=== PATIENT | female | born 1975 | race Caucasian/White ===

== ENCOUNTER 2017-05-21 04:03 | Emergency (ER) | payer OTHER ==
[~2017-05-21] VITALS: Ht 152.4 cm; Wt 61.2 kg
[2017-05-21 05:02] LABS: ABSOLUTE BASOPHIL COUNT 0 /CUMM (0.0-0.2); ABSOLUTE EOSINOPHIL COUNT 0.1 /CUMM (0.0-0.7); ABSOLUTE GRANULOCYTE CT 4.4 /CUMM (1.4-6.5); ABSOLUTE LYMPH COUNT 1.5 /CUMM (1.2-3.4); ABSOLUTE MONOCYTE COUNT 0.4 /CUMM (0.10-0.60); BASOPHIL % 0.4 % (0.0-2.0); EOSINOPHIL % 1.9 % (0-5); GRANULOCYTE % 68.4 % (42.2-75.2); HEMATOCRIT 35.8 % (37-47); MEAN CORPUSCULAR HGB CONC 33.7 G/DL (33.0-37.0); MEAN PLATELET VOLUME 8.5 FL (7.4-10.4); PLATELET COUNT 130 /CUMM (130-400); RED BLOOD CELL CT 4.02 /CUMM (4.20-5.40); WHITE BLOOD CELL COUNT 6.5 /CUMM (4.8-10.8)
--- NOTE | 2017-05-21 05:37 | ED NECK/BACK PAIN COMPLAINT ---
See Addendum History of Present Illness General Chief Complaint: Upper Extremity Problem Stated Complaint: " BIBA MY ARM IS IN PAIN" Source: patient, family, old records, EMS Exam Limitations: no limitations Vital Signs & Intake/Output Vital Signs & Intake/Output Vital Signs Date Time Temp Pulse Resp B/P B/P Pulse O2 O2 Flow FiO2 Mean Ox Delivery Rate 05/21 0655 97.1 89 18 102/55 98 05/21 0422 96.8 78 20 162/79 100 Room Air Allergies Coded Allergies: Penicillins (HIVES 05/21/17) Triage Note: PT BIBA TO TRIAGE. PT C/O R ARM PAIN THAT STARTED AT 0320 AM, PT STATES SHE WOKE UP WITH SHOOTING PAIN FROM R ARMPIT DOWN TO FINGERS. PT STATES ""IT FEELS LIMP, I CANT MOVE IT". PAIN 02/17 Triage Nurses Notes Reviewed? yes Onset: Just prior to arrival Duration: minute(s):, constant, continues in ED Timing: recent history Quality/Severity: severe, sharpness Location: C-spine, paraspinous muscles Radiation: R arm/hand Method of Injury: unknown Loss of Consciousness: no loss of consciousness Modifying Factors: immobilization, movement Associated Symptoms: muscle spasm, neck pain, sensory/motor loss LMP (ages 10-50): unknown : No Patient currently breastfeeds: No HPI: Prior to admission patient awoke with severe neck and right arm pain described as sharp constant worse with movement turning bending she is fearful of moving the arm secondary to increased pain. She denies trauma fever chills nausea vomiting diarrhea abdominal pain chest pain shortness of breath headache dysuria rash bleeding. (Gus Healy MD) Past History Travel History Traveled to [place] past 21 day No Medical History Any Pertinent Medical History? see below for history Neurological: NONE EENT: NONE Cardiovascular: NONE Respiratory: NONE Gastrointestinal: NONE Hepatic: NONE Renal: NONE Musculoskeletal: disk herniation Psychiatric: NONE Endocrine: NONE Blood Disorders: NONE Cancer(s): NONE CHEMIST FOOD/Reproductive: NONE Surgical History Surgical History: non-contributory Psychosocial History What is your primary language Burmese Tobacco Use: Never used ETOH Use: denies use Illicit Drug Use: denies illicit drug use Family History Hx Contributory? No (Gus Healy MD) Review of Systems Review of Systems Constitutional: Reports: no symptoms. Eyes: Reports: no symptoms. Ears, Nose, Throat, Mouth: Reports: no symptoms. Respiratory: Reports: no symptoms. Cardiovascular: Reports: no symptoms. Gastrointestinal/Abdominal: Reports: no symptoms. Musculoskeletal: Reports: see HPI, joint pain, muscle pain, neck pain. Skin: Reports: no symptoms. Neurological/Psychological: Reports: no symptoms. All Other Systems: Reviewed and Negative (Gus Healy MD) Physical Exam Physical Exam General Appearance: well developed/nourished, mild distress Head: atraumatic, normal appearance Eyes: Bilateral: PERRL, EOMI. Ears, Nose, Throat, Mouth: hearing grossly normal, moist mucous membrane Neck: normal inspection, limited range of motion, muscle spasm, tender midline Respiratory: normal breath sounds, chest non-tender, no respiratory distress, quiet respiration, lungs clear Cardiovascular: regular rate/rhythm, normal peripheral pulses, norml femoral pulses equa Peripheral Pulses: 4+ carotid (R), 4+ carotid (L) Gastrointestinal: normal bowel sounds, soft, non-tender Back: normal inspection, normal range of motion, no vertebral tenderness Extremities: non-tender, pedal edema, no ligament instability Straight Leg Raising: Right: Negative. Left: Negative. Sensory: Medial Le: L4R, L4L. Top of Foot: 2: L5R, L5L. Sole of Foot: 2: SIR. 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, motor weakness Skin: intact, normal color, warm/dry Core Measures CVA/TIA Diagnosis: No (Gus Healy MD) Progress Differential Diagnosis: C spine injury, cauda equina syn, herniated disc, myofascial strain Plan of Care: Orders Procedure Date/time Status MRI-CERVICAL SPINE 05/21 0654 Active MAGNESIUM 05/21 442 Complete HUMAN BETA HCG SCREEN 05/21 442 Complete COMPREHENSIVE METABOLIC PANEL 05/21 442 Complete CBC WITHOUT DIFFERENTIAL 05/21 442 Complete Laboratory Tests 05/21/17 0450: Anion Gap 16, Estimated GFR > 60, BUN/Creatinine Ratio 14.3, Glucose 106 H, Calcium 9.2, Magnesium 1.9, Total Bilirubin 0.5, AST 18, ALT 28, Alkaline Phosphatase 43, Total Protein 6.7, Albumin 4.2, Globulin 2.5, Albumin/Globulin Ratio 1.7, Total Beta HCG NEGATIVE, CBC w Diff NO MAN DIFF REQ, RBC 4.02 L, MCV 89.0, MCH 30.0, RDW 13.0, MPV 8.5, Gran % 68.4, Lymphocytes % 23.2, Monocytes % 6.1, Eosinophils % 1.9, Basophils % 0.4, Absolute Granulocytes 4.4, Absolute Lymphocytes 1.5, Absolute Monocytes 0.4, Absolute Eosinophils 0.1, Absolute Basophils 0, PUBS MCHC 33.7 Diagnostic Imaging: Viewed by Me: Radiology Read, CT Scan. Discussed w/RAD: Radiology Read, CT Scan. Radiology Impression: Degenerative changes at the lower cervical spine. Bony neuroforaminal narrowing bilaterally at C5-C6. Hand-Off Endorsed To: Ye Freeman DO Endorsed Time: 0700 Pending: MRI, Xray (Gus Healy MD) Departure Departure Disposition: STILL A PATIENT Condition: Stable Clinical Impression Primary Impression: Cervical spinal stenosis Referrals: Patient Has No Primary Care Dr (PCP/Family) Departure Forms: Customer Survey General Discharge Information (Gus Healy MD) Departure Comments 05/21/17 8 am 41-year-old female with severe right upper extremity pain. She is pending MRI. The patient was signed out to me by Dr. 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 She has an excellent right radial pulse. The right hand is warm. There is excellent capillary refill to the right hand. MRI remains pending. (Ye Freeman DO)
--- NOTE | 2017-05-21 06:00 | CT SCAN REPORT ---
EXAMINATION: CT CERVICAL SPINE WITHOUT CONTRAST CLINICAL INFORMATION: Right arm pain. History of C5-C6 herniation. COMPARISON: None TECHNIQUE: Multidetector volumetric imaging of the cervical spine was performed without IV contrast. Coronal and sagittal reformatted images were obtained and reviewed. DLP: 368 mGy-cm FINDINGS: There is reversal of the normal cervical lordosis. No acute fracture or subluxation. Vertebral body heights are maintained. There is disc space narrowing at C5-C6 and C6-C7 with endplate osteophyte formation. There is mild bony neuroforaminal narrowing bilaterally at C5-C6. No gross evidence for disc bulge. The atlantoaxial and atlantooccipital articulations are intact. The visualized portions of the brain are unremarkable. The thyroid gland is unremarkable. The lung apices are clear. IMPRESSION: Degenerative changes at the lower cervical spine. Bony neuroforaminal narrowing bilaterally at C5-C6.
--- NOTE | 2017-05-21 07:02 | RADIOLOGY REPORT ---
EXAMINATION: XR SHOULDER, RIGHT CLINICAL INFORMATION: Atraumatic right shoulder pain COMPARISON: None TECHNIQUE: AP external rotation, Grashey, scapular Y, and axillary views of the right shoulder. FINDINGS: No fracture or dislocation. The humeral head articulates appropriately with the glenoid. The acromioclavicular joint is intact. The visualized lung is clear. No gross soft tissue abnormality. IMPRESSION: Unremarkable right shoulder radiographs.
--- NOTE | 2017-05-21 11:40 | MRI REPORT ---
MR CERVICAL SPINE WITHOUT IV CONTRAST CLINICAL INFORMATION: History of disc herniation and spinal stenosis at C5-C6 with worsening pain. LROM right arm. COMPARISON: Cervical spine CT performed earlier the same day. TECHNIQUE: MRI of the cervical spine without contrast was obtained using routine sequences. FINDINGS: Redemonstrated reversal of the cervical lordosis. The vertebral body heights are maintained. There is mild disc volume loss at C5-C6. There is no bone marrow edema. There are no acute fractures. The craniocervical junction is unremarkable. No cord signal changes. The cervical arterial flow voids are maintained. No significant soft tissue findings. The partially imaged intracranial compartment is unremarkable. C2-C3: Disc contour normal. No central canal stenosis and no foraminal stenosis. C3-C4: Disc contour normal. No central canal stenosis and no foraminal stenosis. C4-C5: There is a shallow left paracentral disc protrusion that contacts and slightly flattens the ventral cord without resulting in significant central canal stenosis. Right-sided uncovertebral joint spurring results in mild right foraminal narrowing. C5-C6: Left greater than right paracentral/lateral disc protrusions resulting in flattening of the ventral cord, moderate central canal stenosis, as well as mild to moderate right greater than left foraminal stenosis. C6-C7: There is a large right lateral disc protrusion that results in severe right-sided foraminal stenosis and suspected compression of the exiting right C7 nerve root. Mild narrowing of the central canal. No significant left foraminal stenosis. C7-T1: Normal. At T1-T2, there is a small central disc protrusion that mildly indents the ventral thecal sac without significant central canal stenosis. IMPRESSION: - At C6-C7, there is a right lateral disc protrusion that results in moderate to severe right-sided foraminal stenosis with probable compression of the exiting right C7 nerve root. - At C5-C6, there are left greater than right paracentral/lateral disc protrusions resulting in flattening of the ventral cord, moderate central canal stenosis, as well as mild to moderate right greater than left foraminal stenosis. - At C4-C5, there is a shallow left paracentral disc protrusion that contacts and slightly flattens the ventral cord without resulting in significant central canal stenosis. - Reversal of the cervical lordosis is stable.
[2017-05-21 13:14] VITALS: BP 138/71
[2017-05-21] MEDS ORDERED: CYCLOBENZAPRINE10 M1 PO (13:57)
[2017-05-21] MEDS ORDERED: PREDNISONE20 M1 PO (13:57)
== END 2017-05-21 15:12 ==
LOC: ERH 04:03
PROVIDERS: Emergency Medicine
DX: M48.02 Spinal stenosis, cervical region (principal); M79.601 Pain in right arm
CPT/HCPCS: 72141; 73030-RT; 96374; 96375; 96376; J1100; J1885